=== PATIENT | female | born 1965 | race Caucasian/White ===

== ENCOUNTER → 2020-05-14 | Day surgery (SDC) | payer BC ==
[2020-05-10 11:56] VITALS: BMI 23.8
[~2020-05-14] MED LIST: MIDAZOLAM 2 MG/2 ML VIAL ONE; PROPOFOL 10 MG/ML 20 ML VIAL IV ONE; fentaNYL (PF) 50 MCG/ML 2 ML AMP ONE
[2020-05-14 11:18] VITALS: RESP 17; TEMP 97.7
[2020-05-14] MEDS: LACTATED RINGERS 1,000 ML IV SCH ×2 (11:24→12:20)
--- NOTE | 2020-05-14 13:13 | P.PCN ---
Date of Procedure: 05/14/20 Description of Procedure: Brief History: Patient is a 54-year-old female presenting for outpatient EGD and colonoscopy for evaluation of nausea and vomiting and for history of colon polyps. Patient has a significant history of colonic diverticulosis, H. pylori, peptic ulcer disease and reports of prior esophageal stricture as well as polyps on colonoscopy. She has had symptoms of nausea, vomiting, bloating and worsening with no change in bowel habits over the past year. She presented to the clinic for further evaluation. Last colonoscopy 2014 with pulse. Procedure performed: Esophagogastroduodenoscopy with biopsy Colonoscopy Estimated blood loss: Minimal. Preoperative diagnosis: Nausea and vomiting, history of colon polyps Anesthesia: MAC Procedure: After informed consent was obtained from the patient was brought into the endoscopy unit and IV sedation was administered by anesthesia under continuous monitoring. Initially upper endoscopy was done. The Olympus GF 190 video endoscope was inserted into the mouth and esophagus intubated without any difficulty and was gradually advanced into the stomach and duodenum and carefully examined. The bulb and second part of the duodenum appeared normal, with biopsies taken to rule out celiac sprue. The scope was then withdrawn into the stomach adequately insufflated with air and upon careful examination the antrum and body, cardia and fundus appeared normal, except for some mild scattered erythema in the antrum and body suggestive of mild gastritis with biopsies taken. The scope was then withdrawn into the esophagus. The GE junction was located at 39 cm to the incisors and biopsied. It appeared regular with no erythema erosions or ulcerations. Rest of the esophagus appeared normal. Patient tolerated the procedure well. At this time the patient continued to remain sedation. Initial digital rectal examination was normal. Olympus CF 190 video colonoscope was then inserted into the rectum and gradually advanced to the cecum without any difficulty. Careful examination was performed as the scope was gradually being withdrawn. The prep was excellent. The cecum, ascending colon, transverse colon, descending colon, sigmoid colon and rectum appeared normal. Multiple small and large mouth di verticula noted throughout the colon. Retroflexion was performed in the rectum and no lesions were noted, low-grade internal hemorrhoids seen. Patient tolerated the procedure well. Impression: 1. Mild gastritis antrum body, biopsied. Biopsies of the duodenum and GE junction. 2. Moderate pandiverticulosis. Otherwise normal-appearing colon from rectum to cecum. Recommendations: Findings of this examination were discussed with the patient. Okay to resume diet. Okay to resume medications. Await pathology from biopsies. Follow up in gastroenterology clinic in a few weeks as previously scheduled for results of biopsies and continue medical management.
[2020-05-14 13:25] VITALS: PULSE 60
[2020-05-14 13:28] VITALS: BP 101/65
== END ==
LOC: ORWHC2ENDO 11:03
PROVIDERS: ATTEND Internal Medicine
DX: K57.30 Diverticulosis of large intestine without perforation or abscess without bleeding (principal); K29.50 Unspecified chronic gastritis without bleeding; K22.8 Other specified diseases of esophagus; Z86.010 Personal history of colon polyps; Z86.19 Personal history of other infectious and parasitic diseases; Z87.11 Personal history of peptic ulcer disease; Z87.19 Personal history of other diseases of the digestive system; Z98.890 Other specified postprocedural states
CPT/HCPCS: 88305; 45378; 43239; J2250; J3010; J2704

== ENCOUNTER → 2020-06-27 | Outpatient (CLI) | payer BC ==
--- NOTE | 2020-06-27 10:29 | US ---
EXAMINATION TYPE: US liver DATE OF EXAM: 06/27/2020 COMPARISON: NONE CLINICAL HISTORY: R10.11 Upper Right quadrant pain. Intermittent RUQ Pain, nausea, and vomiting x 8 m ths EXAM MEASUREMENTS: Liver Length: 14.7 cm Gallbladder Wall: 0.2 cm CBD: 0.2 cm Right Kidney: 11.0 x 3.6 x 5.2 cm Pancreas: Obscured by bowel gas Liver: wnl Gallbladder: Multiple echogenic, shadowing stones/ Fold noted Evidence for sonographic Glez's sign: No CBD: wnl Right Kidney: wnl IMPRESSION: Uncomplicated cholelithiasis noted.
== END | disposition home or self-care (01) ==
LOC: RADUSWWP 09:36
PROVIDERS: ATTEND Internal Medicine Gastroenterology
DX: K80.20 Calculus of gallbladder without cholecystitis without obstruction (principal)
CPT/HCPCS: 76705